=== PATIENT | male | born 1990 | race African-American/Black ===

== ENCOUNTER 2017-01-31 00:37 | Emergency (ER) | payer MEDICAID ==
[~2017-01-31] VITALS: Ht 190.5 cm; Wt 109.6 kg
[~2017-01-31 00:37] MED LIST: HYDR473S47 PO; [UNRECOGNIZED DRUG - CODE] PO
[2017-01-31 00:39] VITALS: BP 133/90
== END 2017-01-31 01:38 | disposition home or self-care (01) ==
LOC: ED 01:29
DX: R60.0 Localized edema (principal)
CPT/HCPCS: 99281

== ENCOUNTER 2017-02-03 19:23 | Emergency (ER) | payer MEDICAID ==
[~2017-02-03] VITALS: Ht 190.5 cm; Wt 108.5 kg
[2017-02-03 20:54] LABS: ASPARTATE AMINO TRANSFERASE 18 U/L (15-37); BLOOD UREA NITROGEN 10 mg/dL (7-18); C-REACTIVE PROTEIN, QUANT 0.12 mg/dL (0.02-0.49)
[2017-02-03] MEDS ORDERED: DEXAMETHASONE 4 MG TABLET ONE (21:54)
[2017-02-03] MEDS ORDERED: AZITHROMYCIN 500 MG TABLET ONE (21:54)
[2017-02-03] MEDS ORDERED: KETOROLAC 30 MG/1 ML ONE (21:54)
[2017-02-03] MEDS ORDERED: CEFTRIAXONE 1,000 MG ONE (21:55)
[2017-02-03] MEDS ORDERED: DEXAMETHASONE 4 MG TABLET PO ONE (22:00)
[2017-02-03] MEDS ORDERED: AZITHROMYCIN 500 MG TABLET PO ONE (22:00)
[2017-02-03] MEDS ORDERED: KETOROLAC 30 MG/1 ML IVPush ONE (22:00)
[2017-02-03] MEDS ORDERED: KETOROLAC 30 MG/1 ML IM ONE (22:00)
[2017-02-03] MEDS ORDERED: CEFTRIAXONE 1,000 MG IM ONE (22:00)
[2017-02-03 22:17] VITALS: BP 112/71
== END 2017-02-03 22:19 | disposition home or self-care (01) ==
LOC: ED 22:00
DX: M13.0 Polyarthritis, unspecified (principal); Z91.030 Bee allergy status
CPT/HCPCS: 36415; 73610; 80053; 85025; 85651; 86140; 87040; 93970; 96372; 99285; J0696; J1885

== ENCOUNTER 2020-11-30 14:13 | Emergency (ER) | payer MEDICAID ==
[~2020-11-30] VITALS: Ht 190.5 cm; Wt 100.1 kg
[2020-11-30 14:33] VITALS: BP 130/61
== END 2020-11-30 14:41 | disposition left against medical advice (07) ==
LOC: ED 14:30
DX: R51.9 Headache, unspecified (principal); Z53.21 Procedure and treatment not carried out due to patient leaving prior to being seen by health care provider